=== PATIENT | female | born 1965 | race African-American/Black ===

== ENCOUNTER 2024-07-05 18:13 | Emergency (ER) | payer OTHER ==
[2024-07-05 18:53] LABS: Absolute Basophils 0.2 K/uL (0-0.5); Absolute Eosinophils 0.1 K/uL (0-0.5); Absolute Lymphocytes (CBC) 4.3 K/uL (0.7-4.9); Absolute Monocytes 0.3 K/uL (0.1-1.3); Absolute Neutrophil 2.4 K/uL (1.8-8.0); Basophils % 2.6 % (0-1.3); Hematocrit 37.7 % (36.0-45.0); Hemoglobin 12.4 g/dL (12.0-15.0); MCH 25.8 pg (27.0-35.0); MCHC 32.8 g/dL (32.0-36.0); MCV 78.8 fL (80-100); MPV 8.8 fL (7.6-11.3); Monocytes % 4.2 % (3.3-12.3); Neutrophils % 33.2 % (41.7-73.7); Nucleated Red Blood Cells % 0.2 % (0-0); Platelets 103 thou/uL (152-406); RBC Red Blood Cell Count 4.79 M/uL (3.86-4.86); Red Cell Distribution Width 16.8 % (12.1-15.2)
[2024-07-05 19:01] LABS: Anion Gap 8.2 mEq/L (5.0-15.0); Potassium 4.2 mEq/L (3.5-5.1)
[2024-07-05] MEDS ORDERED: NA CHLORIDE 0.9% 100 ML ONE (19:13)
[2024-07-05] MEDS ORDERED: VALPROATE NA 500 MG/5 ML INJ IV ONE (19:13)
--- NOTE | 2024-07-05 19:29 | ER ---
Nurse's Notes [facility] Name: Liberty Cummins Age: 59 yrs Sex: Female : 1965 Arrival Date: 07/05/2024 Time: 18:13 Bed 6 Private MD: Diagnosis: Other seizures Presentation: 07/05 18:17 Chief complaint: Patient states: she had a seizure at [facility]. patient is now A/O ap3 X's 4. Coronavirus screen: At this time, the client does not indicate any symptoms associated with coronavirus-19. Ebola Screen: No symptoms or risks identified at this time. Initial Sepsis Screen: Does the patient meet any 2 criteria? No. Patient's initial sepsis screen is negative. Does the patient have a suspected source of infection? No. Patient's initial sepsis screen is negative. Risk Assessment: Do you want to hurt yourself or someone else? Patient reports no desire to harm self or others. Onset of symptoms was July 05, 2024. 18:17 Method Of Arrival: Ambulatory ap3 18:17 Acuity: LOI 3 ap3 Triage Assessment: 18:21 General: Appears in no apparent distress. Behavior is calm, cooperative, appropriate ap3 for age. Neuro: Level of Consciousness is awake, alert, obeys commands, Oriented to person, place, time, situation, Appropriate for age Seizure activity reported prior to arrival. Cardiovascular: Patient's skin is warm and dry. Respiratory: Airway is patent Respiratory effort is even, unlabored, Respiratory pattern is regular, symmetrical. Historical: - Allergies: 18:19 No Known Allergies; ap3 - Home Meds: 18:19 divalproex oral [Active]; Trazodone Oral [Active]; aripiprazole oral [Active]; ap3 Hydroxyzine Oral [Active]; - PMHx: 18:19 Seizure; ap3 Screenin:22 Abuse screen: Denies threats or abuse. Nutritional screening: No deficits noted. ap3 Tuberculosis screening: No symptoms or risk factors identified. 20:35 [facility] ED Fall Risk Assessment (Adult) History of falling in the last 3 months, jb4 including since admission No falls in past 3 months (0 pts) Confusion or Disorientation No (0 pts) Intoxicated or Sedated No (0 pts) Impaired Gait No (0 pts) Mobility Assist Device Used No (0 pt) Altered Elimination No (0 pt) Score/Fall Risk Level 0 - 2 = Low Risk Oriented to surroundings, Maintained a safe environment. Assessment: 19:21 Reassessment: Pt refusing further vital signs at this time. jb4 20:13 Reassessment: D/c pending completion of IV fluids. jb4 20:35 Reassessment: Patient appears in no apparent distress at this time. Patient and/or jb4 family updated on plan of care and expected duration. Pain level reassessed. Patient is alert, oriented x 3, equal unlabored respirations, skin warm/dry/pink. Vital Signs: 18:17 BP 143 / 98; Pulse 74; Resp 18; Temp 98.7; Pulse Ox 100% on R/A; Weight 65 kg; ap3 ED Course: 18:17 Patient arrived in ED. ap3 18:19 Triage completed. ap3 18:19 Cy Caban MD is Attending Physician. ec2 18:21 Patient requests food. ap3 18:21 Patient has correct armband on for positive identification. Bed in low position. Call ap3 light in reach. Side rails up X 1. Provided Education on: call light education. Pulse ox on. NIBP on. Door closed. Noise minimized. Warm blanket given. 18:22 Arm band placed on right wrist. ap3 18:50 Basic Metabolic Panel Sent. jb4 18:50 CBC with Diff Sent. jb4 18:50 Missed attempt(s): 22 gauge in left upper arm. jb4 19:07 Inserted saline lock: 22 gauge in left hand, using aseptic technique. jb4 19:58 Aj Avalos, RN is Primary Nurse. jb4 20:36 No provider procedures requiring assistance completed. IV discontinued, intact, jb4 bleeding controlled, No redness/swelling at site. Pressure dressing applied. Administered Medications: 19:20 Drug: Valproic Acid IV 500 mg IV at bolus once over 60 mins; (mix in 100 mL NS) Route: jb4 IV; Rate: bolus; Infused Over: 60 mins; Site: left hand; 20:30 Follow up: Response: No adverse reaction; IV Status: Completed infusion; IV Intake: jb4 100ml Medication: 20:35 VIS not applicable for this client. jb4 Intake: 20:30 IV: 100ml; Total: 100ml. jb4 Outcome: 19:28 Discharge ordered by . ec2 20:35 Discharged to Rehab Facility jb4 20:35 Condition: stable 20:35 Discharge instructions given to patient, Instructed on discharge instructions, follow up and referral plans. Demonstrated understanding of instructions, follow-up care, 20:37 Patient left the ED. jb4 Signatures: Aj Avalos RN RN jb4 Vicky Ch RN RN ap3 Cy Caban MD MD ec2
--- NOTE | 2024-07-05 19:29 | EDPHYS ---
Physician Documentation [facility] Name: Liberty Cummins Age: 59 yrs Sex: Female : 1965 Arrival Date: 07/05/2024 Time: 18:13 Bed 6 Private MD: ED Physician Cy Caban HPI: 07/05 18:36 This 59 yrs old Black Female presents to ER via Ambulatory with complaints of Seizure. ec2 18:36 Patient with history of epilepsy arrives today for seizure episode. Patient with ec2 Depakote for seizure management, has been medication compliant. Reports that she had a stress reaction because she heard family member is not doing well and had a seizure episode. No nausea or vomiting, no recent illnesses.. Historical: - Allergies: 18:19 No Known Allergies; ap3 - Home Meds: 18:19 divalproex oral [Active]; Trazodone Oral [Active]; aripiprazole oral [Active]; ap3 Hydroxyzine Oral [Active]; - PMHx: 18:19 Seizure; ap3 ROS: 18:37 Constitutional: as per hpi ec2 Exam: 18:37 Constitutional: GEN: NAD Head: atraumatic Eyes: EOMI Ears: External ears are ec2 normal. CV: regular rate LUNGS: no respiratory distress ABD: non-distended SKIN: no evidence of rashes MSK: no evidence of trauma Vital Signs: 18:17 BP 143 / 98; Pulse 74; Resp 18; Temp 98.7; Pulse Ox 100% on R/A; Weight 65 kg; ap3 MDM: 18:19 Medical Screening Exam initiated ec2 18:37 Data reviewed: vital signs, nurses notes. ED course: Patient arrives today for seizure. ec2 Examination is revealing for well-appearing nontoxic individuals otherwise in no acute distress with reassuring hemodynamics is awake and alert without any acute distress with an intact neurologic examination. Will obtain lab work, load with valproic acid as she is on Depakote.. 19:19 ED course: EKG independently reviewed and interpreted by me, shows normal sinus rhythm, ec2 rate of 62, no acute ST segment elevations, normals are nonactionable.. 19:28 ED course: On reassessment patient is well-appearing. I loaded the patient with AED, ec2 labs are reassuring. Will discharge home. Return precautions given.. 07/05 18:20 Order name: Basic Metabolic Panel; Complete Time: 19:27 ec2 07/05 18:20 Order name: CBC with Diff; Complete Time: 19:27 ec2 07/05 18:20 Order name: EKG; Complete Time: 18:20 ec2 07/05 18:20 Order name: EKG - Nurse/Tech; Complete Time: 19:21 ec2 07/05 18:20 Order name: IV Saline Lock; Complete Time: 19:09 ec2 07/05 18:20 Order name: Labs collected and sent; Complete Time: 18:50 ec2 07/05 18:20 Order name: O2 Per Protocol; Complete Time: 18:22 ec2 07/05 18:20 Order name: O2 Sat Monitoring; Complete Time: 18:22 ec2 Administered Medications: 19:20 Drug: Valproic Acid IV 500 mg IV at bolus once over 60 mins; (mix in 100 mL NS) Route: jb4 IV; Rate: bolus; Infused Over: 60 mins; Site: left hand; 20:30 Follow up: Response: No adverse reaction; IV Status: Completed infusion; IV Intake: jb4 100ml Disposition Summary: 07/05/24 19:28 Discharge Ordered Notes: Location: Home ec2 Condition: Stable ec2 Diagnosis - Other seizures ec2 Followup: ec2 - With: Private Physician - When: - Reason: Re-evaluation by your physician Discharge Instructions: - Discharge Summary Sheet ec2 - Seizure, Adult ec2 Forms: - Medication Reconciliation Form ec2 - Antibiotic Education ec2 - Prescription Opioid Use ec2 - Patient Portal Instructions ec2 - Leadership Thank You Letter ec2 Signatures: Dispatcher [employer] Aj Turner RN RN jb4 Vicky Ch RN RN ap3 Cy Caban MD MD ec2 Corrections: (The following items were deleted from the chart) 19: 18:20 Cardiac monitoring ordered. ec2 jb4
[2024-07-06 02:37] VITALS: BP 143/98; TEMP 98.7; O2SAT 100
== END 2024-07-05 20:37 | disposition home or self-care (01) ==
LOC: ER 18:13
DX: G40.89 Other seizures (principal)
CPT/HCPCS: 36415; 80048; 85025; 96365; 99284